=== PATIENT | female | born 1960 | race Caucasian/White ===

== ENCOUNTER → 2023-10-07 08:05 | Outpatient (REF) | payer OTHER, SELFPAY | LOC: PET 08:05 | PROVIDERS: ATTENDING PHYSICIAN Psychiatry & Neurology Neurology | DX: R41.89 Other symptoms and signs involving cognitive functions and awareness (principal) | CPT/HCPCS: 78608; A9552 ==

== ENCOUNTER 2024-05-12 14:27 | Emergency (ER) | payer SELFPAY ==
[2024-05-12 14:29] VITALS: BP 148/73
--- NOTE | 2024-05-12 15:27 | ED.GENMED ---
History of Present Illness
<HEATHER Busch - Last Filed: 05/12/24 17:33>
General
Chief Complaint: Skin Surface Trauma
Source: patient
Exam Limitations: none
Time Seen by Provider: 05/12/24 14:36
Nursing documentation reviewed up to this point in time: agreed with
History of Present Illness
History of Present Illness:
Patient is a 63-year-old female who presented with right index finger injury. Prior to arrival the wind blew her car door which slammed onto her right index finger. She is right-hand dominant. She does complain of discomfort. She is right-hand
dominant. She is unsure of her last tetanus
Past History
<HEATHER Busch - Last Filed: 05/12/24 17:33>
Past History
ED Past Medical History: Hypercholesterolemia and Other (Vertigo); Negative Asthma or HTN
ED Past Surgical History: None
Social History
Tobacco: Former smoker
Alcohol: None
Personal: Single
Living: with family
Review of Systems
<HEATHER Busch - Last Filed: 05/12/24 17:33>
Review of Systems
Allergies reviewed?: Yes
All Other Systems: ROS reviewed and negative except as documented in HPI and ROS
Constitutional: Reports no symptoms; Denies fever, fatigue or chills
Musculoskeletal: Reports other (right index finger injury )
Psychiatric: Reports no symptoms
Phy Exam
<HEATHER Busch - Last Filed: 05/12/24 17:33>
General Physical Exam
General Presentation: no apparent distress
General age: appears stated age
General Skin: warm and dry
General Habitus: normal
General Mental: alert
General Hydration: appears well hydrated
Neurological Exam
Neurological Exam: alert and oriented x3
Musculoskeletal Exam
Musculoskeletal Exam: other (Right upper extremity with strong pulses, right index finger with amputation of distal phalanx; patient able to flex and extend finger no active bleeding)
Skin Exam
Skin Exam: normal color and warm/dry
Psychiatric Exam
Psychiatric Exam: normal mood/affect
Course
<HEATHER Busch - Last Filed: 05/12/24 17:33>
Orders/Labs/Results
Orders:
Orders
05/12/24 14:56
Cephalexin Monohydrate [Keflex] 500 mg PO NOW STA
Tetanus/Diphth/Acelpertussis [Adacel] 0.5 ml IM .ONCE ONE
05/12/24 14:57
Finger(s)/Thumb 2 View Rt [CR Finger(s)/thumb Min 2 Vw Rt] Urgent
Comment:
Reason For Exam: trauma
Indicate Which Finger:: Index Finger
05/12/24 16:16
Aluminium Finger Splint Right ONCE
Vital Signs
Initial and Last Documented VS:
Initial Vital Signs
Temp Pulse Resp BP Pulse Ox
98.2 F 69 18 148/73 97
05/12/24 14:29 05/12/24 14:29 05/12/24 14:29 05/12/24 14:29 05/12/24 14:29
Last Documented Vital Signs
Temp Pulse Resp BP Pulse Ox
98.2 F 54 14 141/69 95
05/12/24 14:29 05/12/24 15:49 05/12/24 15:49 05/12/24 15:49 05/12/24 15:49
Marriage And Family Therapist consulted with Physician
Marriage And Family Therapist consulted with physician?: Yes
Name of Physician Consulted: alejandro
<Kvng Zheng MD - Last Filed: 05/12/24 16:02>
Orders/Labs/Results
Orders:
Orders
05/12/24 14:56
Cephalexin Monohydrate [Keflex] 500 mg PO NOW STA
Tetanus/Diphth/Acelpertussis [Adacel] 0.5 ml IM .ONCE ONE
05/12/24 14:57
Finger(s)/Thumb 2 View Rt [CR Finger(s)/thumb Min 2 Vw Rt] Urgent
Comment:
Reason For Exam: trauma
Indicate Which Finger:: Index Finger
05/12/24 16:16
Aluminium Finger Splint Right ONCE
Vital Signs
Initial and Last Documented VS:
Initial Vital Signs
Temp Pulse Resp BP Pulse Ox
98.2 F 69 18 148/73 97
05/12/24 14:29 05/12/24 14:29 05/12/24 14:29 05/12/24 14:29 05/12/24 14:29
Last Documented Vital Signs
Temp Pulse Resp BP Pulse Ox
98.2 F 54 14 141/69 95
05/12/24 14:29 05/12/24 15:49 05/12/24 15:49 05/12/24 15:49 05/12/24 15:49
<HEATHER Busch - Last Filed: 05/12/24 17:33>
MDM/Problems Addressed
Differential Diagnosis Includes:
Not limited to amputation
MDM/Problems Addressed:
Patient with amputation of skin/open fracture of distal phalanx of index finger otherwise has normal sensation and movement of finger. She is right-hand dominant she was updated on tetanus and given Keflex. Case was reviewed with orthopedics was
able to visualize images finger via [facility] text will dress with Adaptic dressing DC on Keflex with close outpatient follow-up on Tuesday in the office. On all instructions reviewed patient.
Prior to patient leaving she started to bleed before wound was dressed I did apply Gelfoam with control of bleeding.
<HEATHER Busch - Last Filed: 05/12/24 17:33>
*Radiology
Radiology exam reviewed: preliminary read by ED provider
*Critical Care Note
Total Time (30-74mins, 75-104mins- exclusive of procedures): Not Applicable
<HEATHER Busch - Last Filed: 05/12/24 17:33>
Patient Management
Discussion with other providers: Barrel Burner (ortho dR Avila )
ED Attending Note
<HEATHER Busch - Last Filed: 05/12/24 17:33>
-
Portions of this chart may have been created with voice recognition software.� Occasional wrong word or��sound alike� substitutions may have occurred due to the inherent limitations of voice recognition software.
<Kvng Zheng MD - Last Filed: 05/12/24 16:02>
ED Attending Note
Patient seen and examined by attending physician: Yes
I performed the substantive portion of visit, reviewed & personally made and approve the management plan that is documented in note by myself or MEMO.: Yes
ED Attending Note:
Patient caught her finger in a door. Amputation of the tip. No other injury or complaint.
On exam patient has a amputation mid nail distally. Motor or sensory neurovascular intact.
X-ray shows a tuft fracture. Picture sent to orthopedics. Agree with dressing antibiotics and follow-up early in the week.
Discharge Plan
Departure
Patient Disposition: Home (Routine Discharge)
Date of Disposition: 05/12/24
Time of Disposition: 16:12
Patient Status:: 201
Patient with high blood pressure during this ER visit?: Yes
Condition: Fair
Covid-19: Not Applicable
Discharge Problem:
Open finger fracture
Instructions: Finger Fracture ED, BLOOD PRESSURE
Prescriptions:
New
cephalexin 500 mg capsule
500 mg PO Q6H Qty: 20 0RF
No Action
levothyroxine 75 MCG tablet
88 mcg PO DAILY
pantoprazole 40 MG tablet,delayed release (DR/EC)
40 mg PO HS
rosuvastatin 5 MG tablet
5 mg PO DAILY
bupropion HCl 300 MG tablet extended release 24 hr
300 mg PO DAILY
Patient Comments:
06/24/2021: TAKEN W/ 150MG = 450MG
bupropion HCl 150 MG tablet extended release 24 hr
150 mg PO DAILY
Patient Comments:
06/24/2021: TAKEN W/ 300MG = 450MG
duloxetine 30 MG capsule,delayed release(DR/EC)
30 mg PO HS
Patient Comments:
06/24/2021: TAKEN W/ 60MG = 90MG
duloxetine 60 MG capsule,delayed release(DR/EC)
60 mg PO HS
Patient Comments:
06/24/2021: TAKEN W/ 30MG = 90MG
cholecalciferol (vitamin D3) 2,000 UNITS tablet
2,000 units PO DAILY
aspirin 81 MG tablet,chewable
81 mg PO DAILY 0RF
meclizine 25 MG tablet
25 mg PO Q12H
donepezil [Aricept] 10 mg Tablet
10 mg PO DAILY
memantine [Namenda] 10 mg Tablet
10 mg PO BID
Referrals:
Gerardo Nichols CRNP [Family Provider] -
Paul Avila MD [Active] -
Activity Restrictions/Additional Instructions:
As discussed keep dressing in place until seen by community specialist on Tuesday. Please call the office Tuesday morning for an appointment Tuesday(same-day appointment) a prescription for antibiotics was sent to your pharmacy take as directed. You
may take Tylenol for pain. You were updated on your tetanus vaccine. Return if any worsening of symptoms of increased pain fever chills drainage
Interventions
Interventions:
*Risk Screen - Suicide Last Done: 05/12/24 15:17
*General Assessment Last Done: 05/12/24 15:17
*Neglect/Abuse Screening Last Done: 05/12/24 15:17
ED- Fall Risk Assessment Last Done: 05/12/24 15:17
*ED COVID-19 Vaccine History Last Done: 05/12/24 15:48
ED-Skin Assessment Last Done: 05/12/24 15:18
Discharge Date and Time
Print Language: ERITREAN
[2024-05-12] MEDS: ADACEL 0.5 ML IM (15:41)
[2024-05-12] MEDS: KEFLEX 500 MG PO (15:43)
[2024-05-12 15:48] VITALS: BMI 32.5
[2024-05-12 15:49] VITALS: BP 141/69
== END 2024-05-12 16:50 | disposition home or self-care (01) ==
LOC: EMR 14:27
PROVIDERS: EMERGENCY PHYSICIAN Emergency Medicine; FAMILY PHYSICIAN Nurse Practitioner Family
DX: S62.630B Displaced fracture of distal phalanx of right index finger, initial encounter for open fracture (principal); W23.2XXA Caught, crushed, jammed or pinched between a moving and stationary object, initial encounter; E78.00 Pure hypercholesterolemia, unspecified; Z87.891 Personal history of nicotine dependence; Z23 Encounter for immunization
CPT/HCPCS: 29130; 90471; 99283; 73140; 90715

== ENCOUNTER → 2024-05-16 12:43 | Outpatient (REF) | payer OTHER, SELFPAY | LOC: RCS 12:43 | PROVIDERS: ATTENDING PHYSICIAN Orthopaedic Surgery Hand Surgery; FAMILY PHYSICIAN Nurse Practitioner Family | DX: Z01.818 Encounter for other preprocedural examination (principal) | CPT/HCPCS: 93005 ==

== ENCOUNTER → 2024-05-23 12:36 | Outpatient (REF) | payer OTHER, SELFPAY | LOC: HWRAD 12:36 | PROVIDERS: ATTENDING PHYSICIAN Nurse Practitioner Family | DX: J43.9 Emphysema, unspecified (principal); Z72.0 Tobacco use; R06.09 Other forms of dyspnea | CPT/HCPCS: 71046 ==

== ENCOUNTER → 2024-12-26 12:33 | Outpatient (REF) | payer OTHER, SELFPAY | LOC: HWRAD 12:33 | PROVIDERS: ATTENDING PHYSICIAN Nurse Practitioner Family | DX: R05.1 Acute cough (principal) | CPT/HCPCS: 71046 ==